=== PATIENT | female | born 1990 | race Caucasian/White ===

== ENCOUNTER 2021-09-21 15:11 | Emergency (ER) | payer MEDICAID ==
--- NOTE | 2021-09-21 18:12 | EDM.PDOC ---
ED HPI GENERAL MEDICAL PROBLEM - General Chief Complaint: Laceration Stated Complaint: R HAND LAC Time Seen by Provider: 09/21/21 18:12 Source of Information: Reports: Patient History Limitations: Reports: No Limitations - History of Present Illness INITIAL COMMENTS - FREE TEXT/NARRATIVE: 31-year-old female presents to the ED with a 1 cm laceration at the radial aspect of her right index finger. She states she was reaching into a garbage can and she is not sure what cut her. She appreciates decreased sensation radial aspect of the tip of her finger. There is no evidence of tendon involvement. Her tetanus is toxoid is not up-to-date. Onset: Today, Sudden Onset Date: 09/21/21 Onset Time: 14:05 Duration: Minutes:, Constant Location: Reports: Upper Extremity, Right (Laceration at the radial aspect of her right index finger) Quality: Reports: Burning Severity: Mild Improves with: Reports: None (The second MCP joint) Worsens with: Reports: Movement Context: Reports: Trauma (Laceration on something sharp in the garbage can). Denies: Activity, Exercise, Lifting, Sick Contact Associated Symptoms: Reports: No Other Symptoms Treatments SURGICAL TECHNICIAN: Reports: Acetaminophen Right Lower Finger-Index Pain Score (Numeric/FACES): 7 - Related Data Allergies Allergy/AdvReac Type Severity Reaction Status Date / Time amoxicillin Allergy Rash Verified 09/21/21 16:13 Past Medical History - Past Health History Medical/Surgical History: Denies Medical/Surgical History Cardiovascular History: Reports: None Respiratory History: Reports: None Gastrointestinal History: Reports: None Genitourinary History: Reports: None RATE MANAGER History: Reports: Other RATE MANAGER History: two , both Musculoskeletal History: Reports: None Neurological History: Reports: None Psychiatric History: Reports: Anxiety Endocrine/Metabolic History: Reports: None Hematologic History: Reports: None Oncologic (Cancer) History: Reports: None Dermatologic History: Reports: None - Infectious Disease History Infectious Disease History: Reports: Chicken Pox - Past Surgical History Head Surgeries/Procedures: Reports: None HEENT Surgical History: Reports: Adenoidectomy, Myringotomy w Tube(s), Tonsillectomy Other HEENT Surgeries/Procedures: poor dentation GI Surgical History: Reports: None Social & Family History - Tobacco Use Tobacco Use Status *Q: Current Every Day Tobacco User Years of Tobacco use: 15 Packs/Tins Daily: 0.5 Second Hand Smoke Exposure: Yes - Caffeine Use Caffeine Use: Reports: Soda Caffeine Use Comment: 1 liter per day soap - Alcohol Use Days Per Week of Alcohol Use: 2 Number of Drinks Per Day: 3 Total Drinks Per Week: 6 - Recreational Drug Use Recreational Drug Use: No - Living Situation & Occupation Living situation: Reports: Single Occupation: Employed ED ROS GENERAL - Review of Systems Review Of Systems: See Below Constitutional: Reports: No Symptoms HEENT: Reports: No Symptoms Respiratory: Reports: No Symptoms Cardiovascular: Reports: No Symptoms Endocrine: Reports: No Symptoms GI/Abdominal: Reports: No Symptoms : Reports: No Symptoms Musculoskeletal: Reports: No Symptoms Skin: Reports: No Symptoms Neurological: Reports: No Symptoms Psychiatric: Reports: No Symptoms Hematologic/Lymphatic: Reports: No Symptoms Immunologic: Reports: No Symptoms ED EXAM, SKIN/RASH Exam: See Below Exam Limited By: No Limitations General Appearance: Alert, WD/WN, No Apparent Distress Extremities: Other (The base of her right index finger radial aspect very close to the second MCP joint. She does have decreased sensation to the radial aspect of the finger distal to the laceration suggesting possible neuro injury.) Neurological: Alert ( There is no evidence of a tendon laceration), Oriented, CN II-XII Intact, Normal Cognition ED SKIN PROCEDURES - Laceration/Wound Repair Right Lateral Proximal Ventral Digit - 4th (Ring) Appearance: Subcutaneous, Clean Distal NVT: Other (She does have decreased sensation to light touch distal to the laceration radial aspect of the finger.) Anesthetic Type: Local Local Anesthesia - Lidocaine (Xylocaine): 1% Plain Local Anesthetic Volume: 2cc Skin Prep: Saline Exploration/Debridement/Repair: Wound Explored Closed with: Sutures Lac/Wound length In cm: 2.3 Suture Size: 4-0 # of Sutures: 4 Suture Type: Nylon, Interrupted, Simple Course - Vital Signs Last Recorded V/S: Last Vital Signs Temp 35.9 C L 09/21/21 16:15 Pulse 77 09/21/21 16:15 Resp 16 09/21/21 16:15 BP 112/64 09/21/21 16:15 Pulse Ox 97 09/21/21 16:15 - Orders/Labs/Meds Orders: Active Orders 24 hr Category Date Time Status Vaccine to be Administered/Admin Charge [RC] ASDIRECTED Care 09/21/21 18:16 Ac tive Meds: Medications Discontinued Medications Generic Name Dose Route Start Last Admin Trade Name Tessa PRN Reason Stop Dose Admin Diphtheria/Tetanus/Acell Pertussis 0.5 ml 09/21/21 18:16 09/21/21 18:31 Diphtheria,Pertussis(Acell),Tetanus Vaccine 0.5 Ml Syringe IM 09/21/21 18:17 0.5 ml .ONCE ONE Administration Lidocaine HCl 10 ml 09/21/21 18:15 09/21/21 18:32 Lidocaine 1% 10 Ml Mdv INJECT 09/21/21 18:16 10 ml ONETIME ONE Administration - Radiology Interpretation Free Text/Narrative:: 31-year-old female presents to the ED with a 1 cm laceration at the base of her right index finger. It will require suture repair. Her tetanus diphtheria and pertussis vaccine will also be updated. - Re-Assessments/Exams Free Text/Narrative Re-Assessment/Exam: 09/21/21 18:48 2.3 cm laceration volar lateral aspect of the right index finger was sutured under local anesthetic using 1% lidocaine. 4 sutures were used to close the wound. Patient will cleanse the wound daily with soap and water. She will then apply topical antibiotic to keep clean and bandaged to keep clean. Sutures will need to be removed in 10 days time. Her tetanus diphtheria and pertussis vaccine was updated today and is good for the next 10 years Departure - Departure Time of Disposition: 18:45 Disposition: Home, Self-Care 01 Condition: Fair Clinical Impression: Finger laceration Qualifiers: Encounter type: initial encounter Finger: index finger Damage to nail status: with damage Foreign body presence: without foreign body Laterality: right Qualified Code(s): S61.310A - Laceration without foreign body of right index finger with damage to nail, initial encounter - Discharge Information *PRESCRIPTION DRUG MONITORING PROGRAM REVIEWED*: Not Applicable *COPY OF PRESCRIPTION DRUG MONITORING REPORT IN PATIENT JO: Not Applicable Instructions: Laceration Care, Adult, Sutures, Peterson, or Adhesive Wound Closure, [id number] Referrals: PCP,None [Primary Care Provider] - Forms: ED Department Discharge Additional Instructions: Evaluation in the emergency room today in regards to laceration at the base of your right index finger that appears to have involved the digital nerve with numbness appreciated on the radial aspect of the finger distal to the laceration. This will likely improve on its own over the next several months. There is no evidence of tendon injury. Wound was cleansed and then sutured under local anesthetic x 4. Sutures will need to be removed in 10 days time. Treatment at home is to cleanse the area daily with soap and water. Showering is okay. Then apply topical antibiotic such as bacitracin or Polysporin to the wound once daily and cover with a bandage to keep clean. Return to medical care sooner if he was a see any signs of infection such as increased redness, swelling or obvious pus. Your tetanus diphtheria and pertussis vaccine was updated today and is good for the next 10 years. Sepsis Event Note (ED) - Evaluation Sepsis Screening Result: No Definite Risk - Focused Exam Vital Signs: Vital Signs Temp Pulse Resp BP Pulse Ox 09/21/21 16:15 35.9 C L 77 16 112/64 97 - My Orders Last 24 Hours: My Active Orders 09/21/21 18:16 Vaccine to be Administered/Admin Charge [RC] ASDIRECTED - Assessment/Plan Last 24 Hours: My Active Orders 09/21/21 18:16 Vaccine to be Administered/Admin Charge [RC] ASDIRECTED
[2021-09-21] MEDS ORDERED: Lidocaine 1% 10 ML MDV INJECT ONE (18:15)
[2021-09-21] MEDS ORDERED: Diphtheria,Pertussis(Acell),Tetanus Vaccine 0.5 ML Syringe IM ONE (18:16)
[2021-09-21 19:02] VITALS: BP 110/75; PULSE 64
== END 2021-09-21 18:55 | disposition home or self-care (01) ==
LOC: JD.ED 15:11
DX: S61.310A Laceration without foreign body of right index finger with damage to nail, initial encounter (principal); S61.314A Laceration without foreign body of right ring finger with damage to nail, initial encounter; Z88.0 Allergy status to penicillin; Z72.0 Tobacco use; Z23 Encounter for immunization; W26.8XXA Contact with other sharp object(s), not elsewhere classified, initial encounter
CPT/HCPCS: 12001; 90471; 90715; 99283-25